=== PATIENT | male | born 1950 | race Caucasian/White ===

== ENCOUNTER 2018-07-03 10:40 | Inpatient (IN) | payer OTHER ==
[~2018-07-03] VITALS: Ht 175.3 cm; Wt 88.4 kg
[~2018-07-03 10:40] MED LIST: ATOR10TA; CHOL MED; COEN10CA4; LISIPOW
[2018-07-03 11:25] LABS: Basophils # (auto) 0 uL; Basophils % (auto) 0.7 % (0.0-2.0); Eosinophils # (auto) 0.2 uL; Eosinophils % (auto) 2.3 % (0.0-7.0); Hematocrit 43.9 % (41.0-53.0); Hemoglobin 14.8 g/dL (13.5-17.5); Lymphocytes # (auto) 1.5 uL; Lymphocytes % (auto) 23.1 % (10.0-50.0); Mean Corpuscular Hemoglobin 29.2 pg (28.0-32.0); Mean Corpuscular Hgb Conc. 33.6 g/dL (32.0-36.0); Mean Corpuscular Volume 86.8 fL (80.0-100.0); Monocytes # (auto) 0.9 uL; Monocytes % (auto) 13.4 % (0.0-12.0); Neutrophils # (auto) 3.9 uL; Neutrophils % (auto) 60.5 % (37.0-80.0); Nucleated Red Blood Cells % 0.2 %; Platelet Count (auto) 258 10^3/uL (140-450); Red Blood Cells 5.06 10^6/uL (4.5-5.90); Red Cell Distribution Width 14.8 % (11.8-14.3); White Blood Cell 6.5 10^3/uL (4.4-10.8)
[2018-07-03 11:36] LABS: Albumin 3.4 g/dL (3.4-5.0); Anion Gap 3 (5-15); Blood Urea Nitrogen 10 mg/dL (7-18); Calcium 8.2 mg/dL (8.5-10.1); Carbon Dioxide 28 mmol/L (21-32); Chloride 110 mmol/L (98-107); Glucose 85 mg/dL (74-106); Magnesium 2.3 mg/dL (1.6-2.6); Sodium 141 mmol/L (136-145)
[2018-07-03 11:43] LABS: Alanine Aminotransferase 26 U/L (16-61); Alkaline Phosphatase 125 U/L (45-117); Aspartate Aminotransferase 21 U/L (15-37); Bilirubin, Total 0.7 mg/dL (0.2-1.0); GFR African American 85 mL/min; GFR Non-African American 70 mL/min; Total Protein 7.1 g/dL (6.4-8.2)
[2018-07-03 13:07] LABS: Urine Bacteria NONE SEEN /hpf (None Seen); Urine Blood Negative /uL (Negative); Urine Specific Gravity 1.009 (1.001-1.035); Urine WBC 1 /hpf (0 - 3)
[2018-07-03] MEDS ORDERED: MORPHINE SULF INJ 2 MG/ML SYRINGE 1ML IV PRN ×2 (14:30)
[2018-07-03] MEDS ORDERED: MULTIPLE VITAMIN 10 ML, MAGNESIUM SULF SDV 50% 8 MEQ in D5W/SOD CHL 0.45% 1,000 ML IV SCH (14:30)
[2018-07-03] MEDS ORDERED: ACETAMINOPHEN 500 MG TAB PO PRN (14:30)
[2018-07-03] MEDS ORDERED: NITROGLYCERIN 0.4 MG SL TAB SL PRN (14:30)
[2018-07-03] MEDS ORDERED: ONDANSETRON HCL 4 MG/2 ML VIAL IV PRN (14:30)
[2018-07-03] MEDS ORDERED: HYDROcodone-ACET 5/325MG TAB PO PRN (14:30)
[2018-07-03] MEDS ORDERED: LORA-655 PO (14:52)
[2018-07-03] MEDS ORDERED: LATA0.0015 (14:52)
[2018-07-03] MEDS ORDERED: ASPI-231 PO (14:52)
[2018-07-03] MEDS ORDERED: OLAN5TAB30 (14:52)
[2018-07-03] MEDS ORDERED: LORA-654 PO (14:52)
[2018-07-03 15:05] LABS: Folate (Folic Acid) 9.74 ng/mL (5.38-24)
[2018-07-03] MEDS ORDERED: LORazepam 2MG/ML-1ML VIAL IV ONE (15:30)
[2018-07-03] MEDS ORDERED: HALOPERIDOL LACTATE 5 MG/ML INJ VIAL IM PRN (15:30)
[2018-07-03] MEDS: cefTRIAXone 1GM/50ML D5W 50 ML IV SCH (15:30)
[2018-07-03 15:56] VITALS: BP 129/76
[2018-07-03] MEDS: AZITHROMYCIN 500MG/ 250ML 250 ML IV SCH (16:01)
[2018-07-03] MEDS: IPRATROPIUM BROM 0.5 MG/2.5ML INH SOL NEB SCH (19:08)
[2018-07-03] MEDS: ALBUTEROL SULF 2.5 MG/0.5ML(0.5%) NEB SOLN NEB SCH (19:08)
--- NOTE | 2018-07-03 20:10 | NUR ---
Telemetry admit from [facility] admitted to Telemetry unit after SBAR received. Patient oriented to Blair padilla RN, unit, room, bed, and unit policies regarding patient care and visiting hours. Patient now on continuous telemetry monitoring, tele box # [id number] and telemetry reading on arrival to unit is nsr. Patient placed on bedside oxygen, weighed by bedscale and encouraged to call if they need something. All questions and concerns addressed, patient verbalized understanding.
[2018-07-03 22:00] VITALS: BP 102/53
[2018-07-03] MEDS: ATORVASTATIN 20 MG TAB PO SCH (22:00)
[2018-07-04 05:00] VITALS: BP 92/56
[2018-07-04] MEDS: ALBUTEROL SULF 2.5 MG/0.5ML(0.5%) NEB SOLN NEB SCH ×3 (06:09→18:00)
[2018-07-04] MEDS: IPRATROPIUM BROM 0.5 MG/2.5ML INH SOL NEB SCH ×3 (06:09→18:00)
--- NOTE | 2018-07-04 07:50 | NUR ---
Opening Shift Note Assumed care of patient, patient sleeping No S/S of distress/SOB or pain. Will continue to monitor for changes Q1hr and PRN.
[2018-07-04 08:00] VITALS: BP 105/71
[2018-07-04 08:08] VITALS: BP 105/77
[2018-07-04] MEDS: OLANZapine 5 MG TAB PO SCH (09:29)
[2018-07-04] MEDS: ASPirin-EC 81 mg tab PO SCH (09:29)
[2018-07-04] MEDS: cefTRIAXone 1GM/50ML D5W 50 ML IV SCH (09:30)
[2018-07-04] MEDS: PANTOPRAZOLE 40 MG/10 ML VIAL IV SCH (09:30)
[2018-07-04] MEDS: AZITHROMYCIN 500MG/ 250ML 250 ML IV SCH (09:30)
--- NOTE | 2018-07-04 11:16 | NUR ---
CUP PROVIDED FOR RESP CULTURE CUP PROVIDED FOR RESPIRATORY CULTURE. EDUCATION PROVIDED, PATIENT VERBALIZED UNDERSTANDING.
--- NOTE | 2018-07-04 11:16 | NUR ---
RAPID INFLUENZA RAPID INFLUENZA SWAB SENT TO LAB PER ORDER.
[2018-07-04 12:06] VITALS: BP 122/84
[2018-07-04 17:18] VITALS: BP 117/81
--- NOTE | 2018-07-04 17:30 | NUR ---
TELE PSYCH TELE PSYCH CALLED IN, CAMERA AT BEDSIDE. WAITING FOR MD CALL.
[2018-07-04] MEDS ORDERED: ALBUAER3 IN (17:43)
[2018-07-04] MEDS ORDERED: LEVO500T21 PO (17:43)
--- NOTE | 2018-07-04 18:40 | NUR ---
END OF SHIFT PATIENT RESTING IN BED. NO S/S OF DISTRESS. INSTRUCTED PATIENT TO CALL PRN. BED IN LOWEST LOCKED POSITION, CALL LIGHT WITHIN REACH. ENDORSED CARE TO YOLANDA VILLAREAL.
--- NOTE | 2018-07-04 18:41 | NUR ---
TELE PSYCH SPOKE WITH TELE PSYCH, EVALUATION WILL BE DONE BEFORE 10 TONIGHT.
--- NOTE | 2018-07-04 18:52 | NUR ---
TELE PSYCH TELE PSYCH CALLED AND STATED THEY ARE EXPERIENCING A HIGH CALL VOLUME AND WILL NOT BE ABLE TO GET TO THE PATIENT UNTIL TOMORROW. ASKED TELE PSYCH TO BE DONE EARLY POSSIBLE. DR. Evette SCHWARTZ MADE AWARE.
--- NOTE | 2018-07-04 20:00 | NUR ---
Opening Shift Note Assumed care of patient, awake and alert. No S/S of distress/SOB or pain. Instructed on POC and to call for assist PRN. Bed in lowest locked position, call light within reach, side rails up x2. Will continue to monitor for changes Q1hr and PRN.
--- NOTE | 2018-07-04 21:20 | NUR ---
Respiratory note: PT ASSESSED FOR PRN MED NEB TX. HR 72, RR 16, SPO2 96% ON R/S, BS CLEAR. NO SIGNS OF ANY RESPIRATORY DISTRESS NOTED. ADVISED PT TO PLEASE CALL IF NEEDED.
[2018-07-04] MEDS: ATORVASTATIN 20 MG TAB PO SCH (21:47)
[2018-07-04 22:00] VITALS: BP 128/85
[2018-07-05 05:00] VITALS: BP 102/57
[2018-07-05] MEDS: IPRATROPIUM BROM 0.5 MG/2.5ML INH SOL NEB SCH ×2 (06:29→11:59)
[2018-07-05] MEDS: ALBUTEROL SULF 2.5 MG/0.5ML(0.5%) NEB SOLN NEB SCH ×2 (06:30→11:59)
--- NOTE | 2018-07-05 07:30 | NUR ---
Opening Shift Note Assumed care of patient, patient is awake and alert. No S/S of distress/SOB or pain. Instructed on POC and to call for assist PRN, will continue to monitor. Bed locked in the lowest position. Bed rails x2. Call light in reach.
--- NOTE | 2018-07-05 08:00 | NUR ---
PLACED TELEPSYCH MACHINE IN ROOM. CONTACTED TELEPSYCH AND SPOKE WITH GINA, GINA AWARE PATIENT IS READY FOR CONSULT.
[2018-07-05 08:38] VITALS: BP 104/74
[2018-07-05] MEDS: cefTRIAXone 1GM/50ML D5W 50 ML IV SCH (08:39)
[2018-07-05] MEDS: ASPirin-EC 81 mg tab PO SCH (10:04)
[2018-07-05] MEDS: PANTOPRAZOLE 40 MG/10 ML VIAL IV SCH (10:04)
[2018-07-05] MEDS: AZITHROMYCIN 500MG/ 250ML 250 ML IV SCH (10:04)
[2018-07-05] MEDS: OLANZapine 5 MG TAB PO SCH (10:05)
--- NOTE | 2018-07-05 11:00 | NUR ---
CONTACTED FAMILY PER DAUGHTER VALARIE, SHE WILL BE AT THE HOSPITAL AT 1400 TODAY AND IS AWARE OF DISCHARGE.
--- NOTE | 2018-07-05 14:19 | NUR ---
CONTACTED PHARMACY CONTACTED PATIENTS PHARMACY, [facility]. PER [facility], PATIENTS PRESCRIPTION IS READY FOR [facility]. NOTIFIED PATIENT.
--- NOTE | 2018-07-05 14:20 | NUR ---
PATIENT HAS BEEN ACCEPTED BY [facility]. START OF CARE WILL BE 24 TO 48 HOURS AFTER DISCHARGE. PHONE NUMBER [phone]
--- NOTE | 2018-07-05 15:09 | NUR ---
DISCHARGE Discharge instructions given as ordered. Encourage to follow up with PMD as instructed. All questions and concerns addressed. Patient and daughter Sarah verbalized understanding. Daughter aware of telepsych recommendation. Medication reconciliation form completed and copy given to patient. IV removed with catheter intact, pressure dressing applied. Telemetry unit returned to ICU. Patient ambulated off unit with daughter with all personal belongings, accompanied by staff and family member. No distress noted at time of departure.
== END 2018-07-05 15:00 | disposition home or self-care (01) | DRG 193 ==
LOC: EDBD 10:40 → ER 10:40 → MERGE 14:30 → TELE 14:30 → TELE-WESTW 20:14
PROVIDERS: ADMIT Nurse Practitioner Acute Care; ATTEND Hospitalist
DX: J18.9 Pneumonia, unspecified organism (principal); G93.41 Metabolic encephalopathy; I10 Essential (primary) hypertension; Z85.038 Personal history of other malignant neoplasm of large intestine; E83.51 Hypocalcemia; F02.80 Dementia in other diseases classified elsewhere, unspecified severity, without behavioral disturbance, psychotic disturbance, mood disturbance, and anxiety; F20.9 Schizophrenia, unspecified; G30.9 Alzheimer's disease, unspecified; E78.5 Hyperlipidemia, unspecified; F41.9 Anxiety disorder, unspecified; Z88.5 Allergy status to narcotic agent; Z79.82 Long term (current) use of aspirin; Z79.899 Other long term (current) drug therapy
CPT/HCPCS: 36415; 70450; 71045; 80053; 81001; 82306; 82607; 82746; 83735; 84425; 84443; 84484; 85025; 87804; 93005; 94640; 96365; 96367; 96375; C9113; G0378; J0696

== ENCOUNTER 2019-05-10 14:15 | Emergency (ER) | payer OTHER ==
[~2019-05-10] VITALS: Ht 182.9 cm; Wt 95.3 kg
[~2019-05-10 14:15] MED LIST changes: +ALBUAER3 IN; +ASPI-231 PO; +LATA0.0015; +LEVO500T21 PO; +LORA0.5T12 PO; +OLAN5TAB30
[2019-05-10] MEDS ORDERED: SODIUM CHLORIDE 0.9% 1,000 ML IV ONE (14:25)
[2019-05-10 15:18] LABS: Basophils # (auto) 0.1 uL; Basophils % (auto) 0.7 % (0.0-2.0); Eosinophils # (auto) 0.2 uL; Eosinophils % (auto) 2.3 % (0.0-7.0); Hematocrit 46.7 % (41.0-53.0); Hemoglobin 16.1 g/dL (13.5-17.5); Lymphocytes # (auto) 1.4 uL; Lymphocytes % (auto) 17.4 % (10.0-50.0); Mean Corpuscular Hemoglobin 30.3 pg (28.0-32.0); Mean Corpuscular Hgb Conc. 34.3 g/dL (32.0-36.0); Mean Corpuscular Volume 88.3 fL (80.0-100.0); Monocytes # (auto) 0.8 uL; Monocytes % (auto) 9.3 % (0.0-12.0); Neutrophils # (auto) 5.7 uL; Neutrophils % (auto) 70.3 % (37.0-80.0); Platelet Count (auto) 278 10^3/uL (140-450); Red Blood Cells 5.29 10^6/uL (4.5-5.90); Red Cell Distribution Width 14.1 % (11.8-14.3)
[2019-05-10 15:39] LABS: Alanine Aminotransferase 19 U/L (16-61); Albumin 3.4 g/dL (3.4-5.0); Anion Gap 7 (5-15); Aspartate Aminotransferase 15 U/L (15-37); BUN/Creatinine Ratio 14.7; Blood Urea Nitrogen 16 mg/dL (7-18); Calcium 8.3 mg/dL (8.5-10.1); Carbon Dioxide 25 mmol/L (21-32); Chloride 111 mmol/L (98-107); GFR African American 87 mL/min; GFR Non-African American 72 mL/min; Glucose 93 mg/dL (74-106); Sodium 143 mmol/L (136-145)
[2019-05-10 15:40] LABS: INR 1.11 (0.9-1.15); Partial Thromboplastin Time 27.6 sec (23.64-32.05)
[2019-05-10 15:44] LABS: Alkaline Phosphatase 123 U/L (45-117); Bilirubin, Total 0.9 mg/dL (0.2-1.0); Total Protein 7.3 g/dL (6.4-8.2)
[2019-05-10 16:20] VITALS: BP 129/85
== END 2019-05-10 16:37 | disposition short-term general hospital (02) ==
LOC: ER 14:15 → EDBD 14:15 → ER 16:35
DX: S06.5X0A Traumatic subdural hemorrhage without loss of consciousness, initial encounter (principal); S02.609A Fracture of mandible, unspecified, initial encounter for closed fracture; I25.10 Atherosclerotic heart disease of native coronary artery without angina pectoris; E78.5 Hyperlipidemia, unspecified; I10 Essential (primary) hypertension; I25.2 Old myocardial infarction; Z88.5 Allergy status to narcotic agent; Z79.899 Other long term (current) drug therapy; W19.XXXA Unspecified fall, initial encounter; Y93.01 Activity, walking, marching and hiking; Y92.89 Other specified places as the place of occurrence of the external cause; Y99.8 Other external cause status
CPT/HCPCS: 36415; 70450; 70486; 71045; 80053; 84484; 85025; 85610; 85730; 99291

== ENCOUNTER 2020-01-30 19:53 | Inpatient (IN) | payer OTHER, MEDICAID ==
[~2020-01-30] VITALS: Ht 175.3 cm; Wt 73.0 kg
[~2020-01-30 19:53] MED LIST changes: -LATA0.0015; +LATA0.0019; -LORA0.5T12 PO; +LORA0.5T20 PO; +OLAN1TAB7; -OLAN5TAB30
[2020-01-30] MEDS ORDERED: SODIUM CHLORIDE 0.9% 1,000 ML IV ONE (21:15)
[2020-01-30] MEDS ORDERED: cefTRIAXone 1GM/50ML D5W 50 ML IV ONE (21:15)
[2020-01-30] MEDS ORDERED: ACETAMINOPHEN 325 MG TAB PO ONE (21:15)
[2020-01-30 21:41] LABS: Basophils # (auto) 0 10 ^3/uL (0-0.2); Basophils % (auto) 0.1 % (0.0-2.0); Eosinophils # (auto) 0 10 ^3/uL (0-0.8); Hematocrit 39.6 % (41.0-53.0); Hemoglobin 13.7 g/dL (13.5-17.5); Lymphocytes # (auto) 0.5 10 ^3/uL (0.4-5.4); Lymphocytes % (auto) 3.3 % (10.0-50.0); Mean Corpuscular Hemoglobin 30.4 pg (28.0-32.0); Mean Corpuscular Hgb Conc. 34.7 g/dL (32.0-36.0); Mean Corpuscular Volume 87.7 fL (80.0-100.0); Monocytes # (auto) 0.7 10 ^3/uL (0-1.3); Neutrophils # (auto) 13.7 10 ^3/uL (1.6-8.6); Neutrophils % (auto) 91.6 % (37.0-80.0); Platelet Count (auto) 212 10^3/uL (140-450); Red Blood Cells 4.52 10^6/uL (4.5-5.90); Red Cell Distribution Width 14.3 % (11.8-14.3); White Blood Cell 14.9 10^3/uL (4.4-10.8)
[2020-01-30 22:02] LABS: INR 1.21 (0.9-1.15); Partial Thromboplastin Time 27.9 sec (23.0-31.2)
[2020-01-30 22:09] LABS: Alanine Aminotransferase 16 U/L (16-61); Albumin 3.3 g/dL (3.4-5.0); Anion Gap 8 (5-15); Aspartate Aminotransferase 21 U/L (15-37); BUN/Creatinine Ratio 14.2; Blood Urea Nitrogen 15 mg/dL (7-18); Calcium 8.2 mg/dL (8.5-10.1); Carbon Dioxide 26 mmol/L (21-32); Chloride 106 mmol/L (98-107); GFR African American 89 mL/min; GFR Non-African American 74 mL/min; Glucose 111 mg/dL (74-106); Potassium 3.7 mmol/L (3.5-5.1); Sodium 140 mmol/L (136-145)
[2020-01-30 22:48] LABS: Urine Bacteria NONE SEEN /hpf (None Seen); Urine Blood Negative /uL (Negative); Urine Mucus FEW (None Seen); Urine Specific Gravity 1.025 (1.001-1.035); Urine WBC 1 /hpf (0 - 3)
[2020-01-30 23:03] LABS: Amphetamine Screen, Urine NEGATIVE (NEGATIVE); Barbiturate Scree,Urine NEGATIVE (NEGATIVE); Benzodiazephine Screen, Urine NEGATIVE (NEGATIVE); Cannabinoid Screen, Urine NEGATIVE (NEGATIVE); Cocaine Screen, Urine NEGATIVE (NEGATIVE); Opiate Scree,Urine NEGATIVE (NEGATIVE); Phencyclidine Screen, Urine NEGATIVE (NEGATIVE)
[2020-01-30 23:23] LABS: Bilirubin, Total 1.7 mg/dL (0.2-1.0); Total Protein 6.6 g/dL (6.4-8.2)
[2020-01-30 23:43] LABS: Alkaline Phosphatase 114 U/L (45-117)
[2020-01-31] MEDS ORDERED: ONDANSETRON HCL 4 MG/2 ML VIAL IV PRN (02:45)
[2020-01-31] MEDS ORDERED: ALBUTEROL SULF 2.5 MG/0.5ML(0.5%) NEB SOLN NEB PRN (02:45)
[2020-01-31] MEDS ORDERED: NITROGLYCERIN 0.4 MG SL TAB SL PRN (02:45)
[2020-01-31] MEDS ORDERED: ACETAMINOPHEN 325 MG TAB PO PRN (02:45)
[2020-01-31] MEDS: CARBIDOPA W LEVODOPA 25/100mg TABLET PO SCH ×3 (06:07→21:29)
[2020-01-31] MEDS: ASPirin 81 mg TAB PO SCH (08:16)
[2020-01-31] MEDS: levETIRAcetam 500 MG TAB PO SCH ×2 (08:16→21:29)
[2020-01-31] MEDS: SODIUM CHLORIDE 0.9% 1,000 ML IV SCH ×2 (08:16→20:50)
[2020-01-31] MEDS: FAMOTIDINE 20 MG TAB PO SCH ×2 (08:16→21:29)
[2020-01-31] MEDS: ENOXAPARIN SOD 40 MG/0.4 ML SYRINGE SC SCH (08:18)
[2020-01-31] MEDS: LISINOPRIL 5 MG TAB PO SCH (08:20)
[2020-01-31 10:19] VITALS: BP 96/66
[2020-01-31 12:03] LABS: Basophils # (auto) 0 10 ^3/uL (0-0.2); Basophils % (auto) 0.1 % (0.0-2.0); Eosinophils # (auto) 0 10 ^3/uL (0-0.8); Eosinophils % (auto) 0.4 % (0.0-7.0); Hematocrit 37.9 % (41.0-53.0); Hemoglobin 13.2 g/dL (13.5-17.5); Lymphocytes # (auto) 1.2 10 ^3/uL (0.4-5.4); Lymphocytes % (auto) 9.6 % (10.0-50.0); Mean Corpuscular Hemoglobin 30.5 pg (28.0-32.0); Mean Corpuscular Hgb Conc. 34.7 g/dL (32.0-36.0); Mean Corpuscular Volume 87.9 fL (80.0-100.0); Monocytes # (auto) 0.5 10 ^3/uL (0-1.3); Monocytes % (auto) 4.2 % (0.0-12.0); Neutrophils # (auto) 10.8 10 ^3/uL (1.6-8.6); Neutrophils % (auto) 85.7 % (37.0-80.0); Platelet Count (auto) 190 10^3/uL (140-450); Red Blood Cells 4.32 10^6/uL (4.5-5.90); Red Cell Distribution Width 14.4 % (11.8-14.3); White Blood Cell 12.5 10^3/uL (4.4-10.8)
[2020-01-31 12:24] LABS: BUN/Creatinine Ratio 15.1; Calcium 8.3 mg/dL (8.5-10.1); Magnesium 2.3 mg/dL (1.6-2.6); Potassium 3.8 mmol/L (3.5-5.1)
[2020-01-31 15:15] VITALS: BP 120/75
[2020-01-31] MEDS ORDERED: LEVE500T32 PO (16:22)
[2020-01-31] MEDS ORDERED: CAR25T PO (16:23)
[2020-01-31 17:00] VITALS: BP 95/43
[2020-01-31] MEDS ORDERED: VANCOMYCIN PER PHARMACY 0 MG IV SCH (18:00)
[2020-01-31] MEDS: PIPERACILLIN-TAZOB 3.375GM 100 ML IV SCH ×2 (18:40→23:58)
[2020-01-31] MEDS ORDERED: cefTRIAXone 1GM/50ML D5W 50 ML IV SCH (21:00)
[2020-01-31] MEDS: VANCOMYCIN 1GM/250ML 250 ML IV SCH (21:48)
[2020-01-31 22:00] VITALS: BP 93/60
[2020-01-31] MEDS ORDERED: ATORVASTATIN 20 MG TAB PO SCH (22:00)
[2020-02-01 05:00] VITALS: BP 106/62
[2020-02-01 05:06] LABS: RPR Non Reactive (Non Reactive)
[2020-02-01] MEDS: PIPERACILLIN-TAZOB 3.375GM 100 ML IV SCH ×3 (06:05→18:00)
[2020-02-01] MEDS: CARBIDOPA W LEVODOPA 25/100mg TABLET PO SCH ×2 (06:05→14:00)
[2020-02-01 06:59] LABS: Basophils # (auto) 0 10 ^3/uL (0-0.2); Basophils % (auto) 0.2 % (0.0-2.0); Eosinophils # (auto) 0.2 10 ^3/uL (0-0.8); Eosinophils % (auto) 1.9 % (0.0-7.0); Hematocrit 35.5 % (41.0-53.0); Hemoglobin 12.6 g/dL (13.5-17.5); Lymphocytes # (auto) 1.1 10 ^3/uL (0.4-5.4); Lymphocytes % (auto) 13.2 % (10.0-50.0); Mean Corpuscular Hemoglobin 30.8 pg (28.0-32.0); Mean Corpuscular Hgb Conc. 35.5 g/dL (32.0-36.0); Monocytes # (auto) 0.6 10 ^3/uL (0-1.3); Monocytes % (auto) 7.2 % (0.0-12.0); Neutrophils # (auto) 6.7 10 ^3/uL (1.6-8.6); Neutrophils % (auto) 77.5 % (37.0-80.0); Nucleated Red Blood Cells % 0.1 %; Platelet Count (auto) 207 10^3/uL (140-450); Red Blood Cells 4.08 10^6/uL (4.5-5.90); Red Cell Distribution Width 14.1 % (11.8-14.3); White Blood Cell 8.7 10^3/uL (4.4-10.8)
[2020-02-01 07:05] LABS: Potassium 3.3 mmol/L (3.5-5.1)
[2020-02-01 07:08] LABS: BUN/Creatinine Ratio 13.8
[2020-02-01 08:36] VITALS: BP 101/56
[2020-02-01] MEDS: LISINOPRIL 5 MG TAB PO SCH (10:00)
[2020-02-01] MEDS: SODIUM CHLORIDE 0.9% 1,000 ML IV SCH (10:10)
[2020-02-01] MEDS: FAMOTIDINE 20 MG TAB PO SCH (10:20)
[2020-02-01] MEDS: ENOXAPARIN SOD 40 MG/0.4 ML SYRINGE SC SCH (10:20)
[2020-02-01] MEDS: levETIRAcetam 500 MG TAB PO SCH (10:20)
[2020-02-01] MEDS: ASPirin 81 mg TAB PO SCH (10:20)
[2020-02-01] MEDS ORDERED: POTASSIUM CHL 20 Meq TABLET PO ONE (11:15)
[2020-02-01] MEDS: VANCOMYCIN 1GM/250ML 250 ML IV SCH (12:00)
[2020-02-01 12:41] VITALS: BP 90/57
[2020-02-01 16:31] VITALS: BP 91/53
[2020-02-01 16:52] VITALS: BP 91/53
== END 2020-02-01 19:20 | disposition hospice, home (50) | DRG 93 ==
LOC: ER 19:53 → EDBD 19:53 → TELE 19:54 → TELE-CENTR 01-31 15:15
PROVIDERS: ADMIT Nurse Practitioner; ATTEND Internal Medicine
DX: G92 Toxic encephalopathy (principal); J06.9 Acute upper respiratory infection, unspecified; R73.9 Hyperglycemia, unspecified; E86.0 Dehydration; E78.5 Hyperlipidemia, unspecified; F20.9 Schizophrenia, unspecified; F02.80 Dementia in other diseases classified elsewhere, unspecified severity, without behavioral disturbance, psychotic disturbance, mood disturbance, and anxiety; I10 Essential (primary) hypertension; I25.10 Atherosclerotic heart disease of native coronary artery without angina pectoris; I25.2 Old myocardial infarction; Z20.828 Contact with and (suspected) exposure to other viral communicable diseases; Z82.3 Family history of stroke; Z82.49 Family history of ischemic heart disease and other diseases of the circulatory system; Z85.038 Personal history of other malignant neoplasm of large intestine; Z86.73 Personal history of transient ischemic attack (TIA), and cerebral infarction without residual deficits; Z66 Do not resuscitate; F01.50 Vascular dementia, unspecified severity, without behavioral disturbance, psychotic disturbance, mood disturbance, and anxiety; Z51.5 Encounter for palliative care; G31.83 Neurocognitive disorder with Lewy bodies
CPT/HCPCS: 36415; 70450; 71045; 80048; 80053; 80307; 81001; 82140; 82607; 82728; 82962; 83036; 83605; 83735; 83880; 84443; 84484; 85025; 85610; 85730; 86592; 87040; 87086; 87426; 93005; 96365; 96372; G0378; J0696; J2543

== ENCOUNTER 2020-02-17 15:00 | Emergency (ER) | payer OTHER, MEDICAID ==
[~2020-02-17] VITALS: Ht 180.3 cm; Wt 70.3 kg
[~2020-02-17 15:00] MED LIST changes: +CAR25T PO; +LEVE500T32 PO; -LEVO500T21 PO
[2020-02-17] MEDS ORDERED: methylPREDNISolone SOD SUCC 125 MG/2 ML VL IV ONE (15:15)
[2020-02-17 16:28] VITALS: BP 130/82
== END 2020-02-17 16:30 | disposition left against medical advice (07) ==
LOC: EDBD 15:00 → ER 15:00
DX: R06.02 Shortness of breath (principal); G30.9 Alzheimer's disease, unspecified; F02.80 Dementia in other diseases classified elsewhere, unspecified severity, without behavioral disturbance, psychotic disturbance, mood disturbance, and anxiety; E78.5 Hyperlipidemia, unspecified; I25.2 Old myocardial infarction; Z98.61 Coronary angioplasty status; Z88.6 Allergy status to analgesic agent